=== PATIENT | female | born 1945 | race Caucasian/White ===

== ENCOUNTER 2017-10-20 09:37 | Day surgery (SDC) | payer MEDICARE, BC ==
[2017-10-19 11:12] LABS: HEMATOCRIT 42.5 % (36.0-48.0); HEMOGLOBIN 13.9 g/dL (12-16); MCHC 32.7 g/dL (31.0-37.0); MCV 88.5 fL (80.0-100.0); MEAN PLATELET VOLUME 10.6 fL (7.4-10.4); RBC 4.8 10x6/uL (4.00-5.40); RDW 12.2 % (11.5-14.5); WBC 5.6 10x3/uL (4.8-10.8)
--- NOTE | ~2017-10-20 | OP ---
PATIENT NAME: JUAN JOSÉ DILL MEDICAL RECORD: [id number] :41 LOCATION:D.OPS ADMISSION DATE: SURGEON: REBECCA ORDAZ DATE OF OPERATION: 10/20/2017 SURGEON: Rebecca Ordaz DPM PREOPERATIVE DIAGNOSES: 1. Hallux abductovalgus, left foot. 2. Hammertoe, second toe, left foot. POSTOPERATIVE DIAGNOSES: 1. Hallux abductovalgus, left foot. 2. Hammertoe, second toe, left foot. PROCEDURE: 1. Rachid/Jaison bunionectomy, left foot. 2. Arthrodesis second proximal interphalangeal joint of left foot. ANESTHESIA: General. HEMOSTASIS: Pneumatic ankle tourniquet inflated to 250 mmHg for 73 minutes. ESTIMATED BLOOD LOSS: Minimal. MATERIALS: One 2.5 mm headless [employer] screw and one [employer] staple. INJECTABLES: 27 cc of 0.5% bupivacaine plain. The patient has longstanding history of the above-mentioned foot deformity. She has tried wider shoes to no avail. She is here today for surgical correction of the above-mentioned deformities. We have discussed the proposed procedures. Risks and benefits were discussed. Complications were reviewed. All questions were answered. She was appropriately consented for the above-mentioned procedures. DESCRIPTION OF PROCEDURE: The patient was brought in the operating room and placed on the operating table in a supine position. A timeout was called with Dr. Ordaz, who identified the patient, the surgical site, and the surgeries to be performed. Once appropriate anesthesia was obtained, the foot was prepped and draped in the usual aseptic manner. The pneumatic ankle tourniquet was inflated to 250 mmHg on the well-padded left ankle. Procedure #1, Rachid-Jaison bunionectomy, left foot. Attention was directed to the dorsal aspect of the first metatarsophalangeal joint where a 6 cm linear incision was made just medial to the extensor hallucis longus tendon. This incision was carried deep to the soft tissue with care being taken to retract all vital neurovascular structures. All bleeders were cauterized along the way. Through this incision, the first intermetatarsal space was entered utilizing both sharp and blunt dissection. Dissection was carried to the level of the conjoined tendon of the adductor hallucis muscle OPERATIVE REPORT [id number] JUAN JOSÉ DILL belly, this tendon was then sharply transected at the base of the proximal phalanx. Attention was then redirected more proximally where the fibular sesamoidal ligament was identified and sharply transected. Next, the periosteum was reflected from the first metatarsophalangeal joint thus exposing the base of the proximal phalanx with hypertrophied medial eminence of the first metatarsal and the first metatarsal head. Utilizing a sagittal saw, the hypertrophied medial eminence of the first metatarsal was removed. Next, utilizing a sagittal saw, a V-shaped osteotomy was created in the head of the first metatarsal. This was a through and through osteotomy and the capital fragment was translocated laterally and impacted upon the first metatarsal shaft. Utilizing manufacture recommended technique, one 2.5 mm screw was placed across the osteotomy. All remaining over hanging bone from the medial aspect of the first metatarsal was removed with the sagittal saw. Any remaining sharp bony edges were then removed with the sagittal saw. Solid fixation was obtained with the screw. Attention was then directed to the dorsal aspect of the proximal phalanx where a V-shaped osteotomy was created in the base of the proximal phalanx with the apex oriented laterally. The wedge of bone was then removed from the wedge from the osteotomy and the osteotomy was reduced. Next, utilizing manufacture's recommended technique, one [employer] staple was placed across the Jaison site. The surgical site was then irrigated with copious amounts of normal sterile saline via bulb syringe. The periosteum was then reapproximated and coapted utilizing 3-0 Vicryl. The subcutaneous was then reapproximated and coapted using 3-0 Vicryl. The skin was then reapproximated and coapted using 4-0 nylon. Procedure #2, arthrodesis second toe, left foot. Attention was directed to the dorsal aspect of the second toe of the left foot where a 3-cm linear incision was made from the metatarsophalangeal joint level just beyond the proximal interphalangeal joint. The incision was carried deep through soft tissue with care being taken to retract all vital neurovascular structures. All bleeders were cauterized along the way. The extensor tendon was then transected from medial to lateral at the level of the proximal interphalangeal joint. The extensor tendon was then dissected proximally to the level of the second metatarsophalangeal joint. Next, the capsular structures medially, laterally, and dorsally were sharply transected at the second MPJ level. Utilizing a sagittal saw, the head of the proximal phalanx was removed and all cartilage was removed from the base of the middle phalanx with a rongeur. Next, one K-wire was driven through the middle phalanx, distal phalanx, and exiting the toe. It was then retrograded into the proximal phalanx and across the metatarsophalangeal joint into the second metatarsal. The surgical site was then irrigated with copious amounts of normal sterile saline via bulb syringe. The proximal interphalangeal joint arthrodesis site was noted to have good bony apposition and fixation. The periosteum was reapproximated and coapted using 3-0 Vicryl. The extensor tendon was reapproximated and coapted using 3-0 Vicryl. The skin was reapproximated and coapted using 4-0 nylon. A dressing consisting of Xeroform, 4 x 4's, Kerlix, and an Daniel bandage was applied to the left foot. The pneumatic ankle tourniquet was deflated and capillary refill time is immediate to all digits of the left foot. The patient tolerated the procedure and anesthesia well. She left the operating OPERATIVE REPORT [id number] UJAN JOSÉ DILL RONI room with vital signs stable. The patient was discharged home with instructions to ice and elevate the left foot. She was dispensed a boot walker to help offload the surgical sites. She was dispensed my cell phone number for any after-hour difficulties. She was also provided with prescriptions for Sarepta 7.5, #30 and Phenergan 25 mg #20. There were no complications of the procedure and we will follow up with her next week. TRANSINT:[id number] Voice Confirmation ID: [id number] DOCUMENT ID: [id number] REBECCA ORDAZ at 1039 CC: [id number] DICTATION DATE: 10/20/17 1354 RAIL GRINDER: 10/20/[address] [facility] 10/20/17 [place] [address]
[~2017-10-20 09:37] MED LIST: CALAN SR240 MG PO; LISINOPRIL10 MG PO; NEURONTIN 300300 MG PO; OMEPRAZOLE20 M1
[2017-10-20 10:31] VITALS: BP 137/71
== END 2017-10-20 16:00 | disposition home or self-care (01) ==
LOC: D.OPS 09:37
PROVIDERS: Anesthesiology
DX: M20.12 Hallux valgus (acquired), left foot (principal); M20.42 Other hammer toe(s) (acquired), left foot; I10 Essential (primary) hypertension; K21.9 Gastro-esophageal reflux disease without esophagitis; Z01.812 Encounter for preprocedural laboratory examination